=== PATIENT | male | born 1995 ===

== ENCOUNTER 2018-06-23 23:20 | Emergency (ER) | payer OTHER ==
[~2018-06-23] VITALS: Ht 185.4 cm; Wt 113.0 kg
[2018-06-23] MEDS ORDERED: amox tr/potassium clavulanate 875/125mg TAB PO ONE (23:45)
[2018-06-24] MEDS ORDERED: AMOX-580 PO (00:14)
[2018-06-24 00:24] VITALS: BP 173/89
[2018-06-24 00:43] LABS: HIV ANTIBODY 1&2 RAPID NON-REACTIVE (Neg)
== END 2018-06-24 00:25 | disposition home or self-care (01) ==
LOC: ER 23:21
DX: S81.832A Puncture wound without foreign body, left lower leg, initial encounter (principal); S80.12XA Contusion of left lower leg, initial encounter; Z79.899 Other long term (current) drug therapy; W50.3XXA Accidental bite by another person, initial encounter; Y93.89 Activity, other specified; Y92.89 Other specified places as the place of occurrence of the external cause; Y99.8 Other external cause status
CPT/HCPCS: 36415; 86703; 99283